=== PATIENT | male | born 1995 | race Two or more races ===

== ENCOUNTER 2021-04-09 07:32 | Outpatient (CLI) | payer OTHER ==
--- NOTE | 2021-04-09 10:42 | MRI Report ---
PROCEDURE: Brain W/O INDICATIONS: Intracranial injury TECHNIQUE: Noncontrast axial T1 spin echo, axial T2 fast spin echo, sagittal and axial FLAIR, coronal T2 fast sp in echo, axial gradient echo, axial diffusion and ADC through the brain. COMPARISON: None. FINDINGS: Numerous nonspecific foci of susceptibility artifact in the anterior and superior left frontal lobe, within the white matter subjacent to the superior frontal gyrus, for example on series 901 images 16- 21. There is also a small focus of increased FLAIR signal within the white matter of the left superio r frontal gyrus (series 801 image 18). No restricted diffusion to indicate recent ischemia. The major intracranial vascular flow related sig nal voids are maintained. There is no abnormal extra-axial fluid collection. No findings of mass effe ct or midline shift. Normal ventricular caliber and position. Patent basilar cisterns. Midline struct ures are normal in appearance. No gross orbital abnormality. Paranasal sinuses and mastoid air cells are predominantly clear. IMPRESSION: Numerous nonspecific foci of susceptibility artifact in the left frontal lobe white matter. Findings could be reflective of prior trauma and diffuse axonal injury. Alternatively, this could represent se quela of prior intraparenchymal hemorrhage. Vascular malformation is considered less likely as there are no associated flow voids. Correlation with any prior imaging studies would be helpful, as would c orrelation with clinical history of prior high mechanism trauma. There is no significant vasogenic ed henrry to suggest the presence of an underlying mass. Reviewed by: Elvis Ortiz MD on 04/09/2021 10:40 AM PDT Approved by: Elvis Ortiz MD on 04/09/2021 10:40 AM PDT Station ID: [id number]
== END 2021-04-09 07:33 | disposition home or self-care (01) ==
LOC: DI 07:32
DX: S06.9X0A Unspecified intracranial injury without loss of consciousness, initial encounter (principal); R94.02 Abnormal brain scan